=== PATIENT | female | born 1985 | race Caucasian/White ===

== ENCOUNTER 2021-03-13 17:14 | Emergency (ER) | payer OTHER ==
[~2021-03-13 17:14] MED LIST: COLACE 100MG C100 MG PO; IBUPROFEN600 MG PO; LEVOXYL88 MCG PO; LORTAB 5-325 M1 EACH PO; PRENATAL VITAM1 EAC6 PO; PROTONIX 40 MG40 M1 PO
[2021-03-13 19:06] LABS: HEMOGLOBIN 14.5 gm/dl (12.3-15.3); RED BLOOD COUNT 4.6 M/UL (4.00-5.10)
[2021-03-13 19:28] LABS: BUN/CREATININE RATIO 14 (0-10)
== END 2021-03-14 07:44 | disposition home or self-care (01) ==
LOC: ER1 17:14
PROVIDERS: Physician Assistant Medical
DX: R10.9 Unspecified abdominal pain (principal); R11.2 Nausea with vomiting, unspecified; Z86.19 Personal history of other infectious and parasitic diseases; Z20.822 Contact with and (suspected) exposure to COVID-19; Z87.442 Personal history of urinary calculi; Z88.0 Allergy status to penicillin
CPT/HCPCS: 80053; 81001; 84703; 85025; 87086; 99284; U0002

== ENCOUNTER 2021-05-07 10:18 | Emergency (ER) | payer OTHER ==
[2021-05-07] MEDS ORDERED: MOBIC15 MG PO (12:58)
[2021-05-07] MEDS ORDERED: CYCLOBENZAPRINE10 MG PO (12:58)
== END 2021-05-07 13:09 | disposition home or self-care (01) ==
LOC: ER1 10:18
DX: S49.92XA Unspecified injury of left shoulder and upper arm, initial encounter (principal); M89.8X2 Other specified disorders of bone, upper arm; K21.9 Gastro-esophageal reflux disease without esophagitis; E03.9 Hypothyroidism, unspecified; V86.59XA Driver of other special all-terrain or other off-road motor vehicle injured in nontraffic accident, initial encounter
CPT/HCPCS: 73030; 99283